=== PATIENT | male | born 1945 | race Hispanic/Latino ===

== ENCOUNTER 2016-05-13 07:11 | Day surgery (SDC) | payer MEDICARE ==
[2016-05-13 08:01] VITALS: BMI 27.6
[2016-05-13 08:07] LABS: ADD MANUAL DIFF? NO
[2016-05-13] MEDS ORDERED: cefTRIAXone (Rocephin) 1 gm Inj ONE (08:09)
[2016-05-13] MEDS ORDERED: Iohexol 240 (50 ml) ONE (08:10)
[2016-05-13 08:18] LABS: BASO # 0.03 K/mm3 (0.0-2.0); BASO % 0.6 % (0.0-3.0); EOS # 0.2 (0.0-0.7); EOS % 4.2 % (1.5-5.0); GRAN # 3.18 (1.4-6.5); GRAN % 61.2 % (50.0-68.0); HEMATOCRIT 37.8 % (42.0-52.0); LYMPH # 1.4 (1.2-3.4); LYMPH % 27.1 % (22.0-35.0); MEAN CELL VOLUME 87.1 fL (80.0-105.0); MEAN CORPUSCULAR HGB CONC 33.3 g/dl (31.0-37.0); MEAN PLATELET VOLUME 10.4 fl (7.0-11.0); MONO # 0.4 (0.1-0.6); MONO % 6.9 % (1.0-6.0); PLATELET COUNT 150 10^3/uL (120.0-450.0); RED CELL DISTRIBUTION WIDTH 13.3 % (11.5-14.5); WHITE BLOOD COUNT 5.2 10^3/ul (4.5-11.0)
[2016-05-13 08:31] LABS: BLOOD UREA NITROGEN 22 mg/dL (7-21); CALCIUM 9.2 mg/dL (8.4-10.5); CARBON DIOXIDE 28 mmol/L (21-33); CHLORIDE 107 mmol/L (98-107); GFR AFRICAN-AMERICAN > 60; GLUCOSE,RANDOM 108 mg/dL (70-110); POTASSIUM 4.2 mmol/L (3.6-5.0); SODIUM 143 mmol/L (132-148)
[2016-05-13] MEDS ORDERED: Morphine 2 mg/ml ISec IVP PRN (10:25)
[2016-05-13] MEDS ORDERED: Lactated Ringer's 1,000 ML IV SCH (10:30)
[2016-05-13] MEDS ORDERED: Propofol 10 mg/ml Inj (20 ML) ONE (10:35)
[2016-05-13] MEDS ORDERED: Midazolam 2 MG/2 ML VIAL ONE (10:36)
[2016-05-13] MEDS ORDERED: Etomidate 20 mg/10ml Inj IV ONE (10:38)
--- NOTE | 2016-05-13 11:25 | CARD ---
APPROVED REPORT EKG Measurement Heart [id number] <Conclusion> Atrial fibrillation Possible Inferior infarct, age undetermined Abnormal ECG
[2016-05-13 13:19] VITALS: TEMP 97; O2SAT 97
[2016-05-13 14:20] VITALS: BP 145/61; PULSE 82; RESP 18
--- NOTE | 2016-05-14 10:55 | RAD ---
PROCEDURE: Fluoroscopy up to 1 hour HISTORY: RETROGRADE / STENT INSERTION (RIGHT) COMPARISON: TECHNIQUE: Fluoroscopy was provided in the operating room. 1 minutes and 45 seconds of fluoroscopy time were utilized. Twenty-four images were submitted FINDINGS: The study shows placement of wires and a ureteroscopy in the right renal collecting system. There is a large stone in the renal pelvis. The final films show placement of a right ureteral stent. The procedure was performed by Dr. Vivienne Anne. IMPRESSION: As above
--- NOTE | 2016-06-07 11:23 | OP ---
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 PROCEDURE: Cystoscopy, retrograde pyelogram, ureteral dilation, all on the right side. Right retrog rade pyelogram, right ureteral dilation, right ureteroscopy, a biopsy and fulguration and insertion o f right double-J stent. ESTIMATED BLOOD LOSS: Less than 10 mL. There were no complications. At the termination of procedure, I left a double-J stent in place. FINDINGS: Normal anterior urethra with no strictures. From the veru it is visually occlusive, it is about 3 cm in length. Of note, there is gross hematuria from the right ureteral orifice present. M polina pictures are taken and saved showing this and demonstrating this. On the patient's left ureteral orifice, there is no gross hematuria. There are no bladder lesions, n o bladder tumors identified. Bladder was inspected carefully. On the right side, in the retrograde, there is a filling defect (this is consistent with the CT scan, which I have had a chance to review; see the history and physical for further details), but it is ve ry round appearance to a very smooth appearance (as opposed to any kind of rigid edges). That is on the retrograde pyelogram. The next finding is directly with the vision with the ureteroscope and the flexible ureteroscope; vis ion was difficult to assess perfectly, but there appears to be a lesion that is noteworthy that is wi thin the renal pelvic area. I took pictures of this well as I took some samples and sent these down as tissue diagnosis to assist to rule out TCC. 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 There were no complications in the procedure. INDICATIONS: See history and physical. This is a very pleasant gentleman who has been bleeding now for about a month and a half. I have known the patient previously; we had treated him for kidney sto marybel. We did our diagnostic studies with cystoscopy, retrograde pyelograms and CT scan. There is an initia l CT scan from the end of March sometime after the patient presented with gross hematuria. At that time, there were no reported lesions. I have also reviewed that. It is not obvious of any major ab normalities; what is of note on that film was some stones. Subsequently, we did a cystoscopy where w e did not find any bladder lesions or the like. In the same vein, with the patient not improving and quite the opposite, is still showing gross hemat uria, I have repeated a CT scan. See that was done without and with IV contrast. On this one , it looks like there is enhancing right renal lesion which we did not detect previously. After dete cting that, I am very suspicious for renal pelvic tumor, a transitional cell carcinoma of the bladder . Subsequently, I have seen the patient several times, so he presented and after discussing options wit h the patient, he is here today for listed procedure. See the history and physical for the details a nd see the addendum at the end of this report, cysto itself. So after discussing options, he is here now for cysto retrograde with a biopsy (I am going to try do it all at one time, not even pre-stent him). I explained this all to the patient, so that we can murray e a tissue diagnosis then make further recommendations, but I explained to the patient that it appear s that he may need a nephroureterectomy. PROCEDURE: After obtaining informed consent the table, routine monitors placed, timeouts were called to confirm the patient and positioning. Cystoscope via the urethra. The anterior urethra is normal, no strictures. From the veru, it is vis ually occlusive about 3 cm in length. Bladder is now inspected carefully and the left ureteral orifi ce looks normal and there are no bladder lesions. On the patient's right side at his right ureteral orifice, there is gross hematuria that we could see . Multiple pictures were taken; at this point, this is prior to any instrumentation of the right claudy e. I did a retrograde pyelogram and I see the right renal pelvis does not fill out well. It is actu ally smooth in appearance (which is somewhat unusual relative to what I was expecting). It is not re ally the jaggedy sort of edge or filling defect that you would expect with polypoid lesion, but it is a definite filling defect. They are on several different films. At this point, I put a wire up to the kidney. I dilated the lo wer ureter. Put a second wire up and went up with the ureteroscope so I could identify different tis juan carlos. The rigid ureteroscope would not reach, so used the flexible ureteroscope. It turns out we were able to investigate every different daryn, and I do not see any real stones or a ny real lesions within the calices. What we do note is that in the renal pelvis, there is an abnorma l lesion. It appears to be whitish reddish. It is difficult to really characterize; I cannot get a great look at it, but we tried to take a sample biopsy at this point. to grab the tissue on mu ltiple attempts. We are able to grab some little piece of tissue; it is very, very challenging to in that particular spot and then did not want too much bleeding and cauterizing. At this point, we then inserted a double-J stent. Overall, the patient tolerated without complicatio n. ADDENDUM: The plan will be to check the pathology, but based on my findings between the CT scan, the presence of gross hematuria, bleeding from the ureteral orifice, the fact that on the CT scan it pemberton s not appear to be a stone at all and there is a definite defect, and I could see an abnormality, my recommendation is going to be for the patient to have a nephroureterectomy with cuff of bladder, etc. We will discuss this further with the patient once the pathology becomes available. Benitez Anne MD cc: [id number] TT: 06/07/2016 11:22:33 an
--- NOTE | 2016-06-07 16:10 | HP ---
REASON FOR ADMISSION: History of gross hematuria. HISTORY: The patient is a very pleasant gentleman. I treated him a couple years back for kidney sto ne disease. Now, he presented the end of 03/2016 with the presence of gross hematuria. Today's date is 7. See the plans listed below. He has had persistent gross hematuria now for about a month. Most recently, when he was not getting better, we repeated a CT scan. The CT scan shows a lesion in the right renal pelvis and that is why he is being brought in immediately for cystoscopy, ureteroscop y with biopsy. Initially, we were concerned because of his history of stone disease that it could be possible from t he stones, although he had no renal colic. We were then concerned with his BPH and voiding dysfuncti on and also concerned with underlying malignancy, whether prostate or bladder. At that time, we did a CT scan for upper tract imaging without contrast. It did not show any abnormalities. Until we got this new CT scan. We then did a cystoscopy and did not see any major abnormalities. Retrograde pyelograms was not very obvious. At this point, the patient is now being brought in because on the CT scan without and with IV contras t, there is an enhancing renal pelvic mass and I am very concerned for transitional cell carcinoma, p articularly for the fact that the patient has not improved. In fact, he has been having ongoing linnea turia. I have been working with him closely to keep a close eye on him. Now, he is here for further testing (making an addendum at the end, but also I discussed with the mark macdonald that if he does need his kidney removed that we will arrange for appointments for him, if approp riate for a surgeon who could do it with a robotic technique). First, we need to make the tissue diagnosis if possible. PAST MEDICAL AND SURGICAL HISTORY: Significant he has underlying coronary artery disease. No history of an GA or CVA. As mentioned above, he has history of stone disease. SOCIAL HISTORY: He is retired. On a social note, he is otherwise unremarkable. REVIEW OF SYSTEMS: As above. No real weight loss, chest pain, shortness of breath. Just the ongoin g discomfort that he has been having and the blood in the urine PHYSICAL EXAMINATION: GENERAL: Well-nourished male in no apparent distress. VITAL SIGNS: Normal. ABDOMEN: Overall soft, nontender. No flank mass appreciated. GENITALIA: Normal phallus without discharge. No testicular masses. RECTAL: Appreciated is a 20-30 gram prostate, soft and smooth. LABORATORIES: See chart. BUN, PSA all noted. Copies enclosed in chart. DIAGNOSES: 1. Gross hematuria, voiding dysfunction. 2. Stones hematuria. PSA. I discussed with the patient options. At this point it has been about a month that we are making thi s diagnosis, though as soon as I realized it, I brought the patient in to the hospital quickly for a cysto-retrograde ureteroscopy. Going to try to do everything all at one time including dilate the ur eter to take some tissue samples. I am very suspicious at this point without over-alarming the patie nt that he is going to have a transitional cell carcinoma of his renal pelvic area and this is going to require surgical intervention. I would like a tissue diagnosis before I explain this more to the patient. PLAN: For today is as follows: 1. Antibiotic prophylaxis. 2. Cystoscopy. 3. Ureteroscopy. 4. Biopsy and then further plans. Planning to place a stent, I explained this to the patient and killian robertson, then further plans will follow depending what we find clinically ADDENDUM: See the separately dictated operative report. Basically, I suspect very strongly the alba ent has a renal pelvic tumor. It was very difficult to get tissue, but we will see what the patholog ists say and then we will go from there. Benitez Anne MD cc: [id number] TT: 06/07/2016 10:41:14 jn
== END 2016-05-13 15:45 | disposition home or self-care (01) ==
LOC: SDS 07:11 → OR 07:11 → SDS 15:45
PROVIDERS: ATTEND Urology
DX: D30 Benign neoplasm of urinary organs (principal); R31.29 Other microscopic hematuria
CPT/HCPCS: 36415; 52344; 52354; 76000; 80048; 85025; 88305; 93005; C1758 ×4; C1769; C2625; J0696; J2001; J2250; J2270; J2405; J2704; J3010; J7120 ×2; Q9966